=== PATIENT | male | born 1950 | race Caucasian/White ===

== ENCOUNTER 2018-11-15 09:39 | Emergency (ER) | payer MEDICARE ==
[~2018-11-15] VITALS: Ht 170.2 cm; Wt 77.1 kg
--- NOTE | 2018-11-15 10:20 | NUR ---
CAME IN FOR BIRGHT RED BLOOD IN STOOL THIS MORNING. TO ER BED 3, HOOKED TO MONITOR, PROVIDED W WARM BLANKET, AWAITING MD COR[place].
--- NOTE | 2018-11-15 10:20 | NUR ---
DR GUTIERREZ AT BEDSIDE
[2018-11-15] MEDS ORDERED: FAMOTIDINE/PF INJ 40 MG in IV D5W 50 ML IV ONE (10:30)
[2018-11-15] MEDS ORDERED: IV NS 0.9% 1,000 ML BAG IV ONE (10:30)
[2018-11-15] MEDS ORDERED: FAMOTIDINE/PF INJ 20 MG/2 ML VIAL IV ONE ×2 (10:31→11:00)
[2018-11-15 10:42] LABS: BASOPHILS % (AUTO) 0.8 % (0.0-2.0); EOSINOPHILS % (AUTO) 2.5 % (0.0-6.0); HEMATOCRIT 44 % (39-51); LYMPHOCYTES # (AUTO) 1.7 /CMM (0.8-4.8); LYMPHOCYTES % (AUTO) 29.6 % (20.0-44.0); MEAN CORPUSCULAR HGB CONC 34 g/dl (31.0-36.0); MEAN CORPUSCULAR VOLUME 93 fL (80-96); MONOCYTES # (AUTO) 0.5 /CMM (0.1-1.30); MONOCYTES % (AUTO) 8.2 % (2.0-12.0); NEUTROPHILS # (AUTO) 3.4 /CMM (1.8-8.9); NEUTROPHILS % (AUTO) 58.9 % (43.0-81.0); PLATELET COUNT (AUTO) 253 /CMM (150-450); RED BLOOD CELL COUNT(AUTO) 4.77 MIL/uL (4.5-6.0); WHITE BLOOD COUNT (AUTO) 5.9 K/uL (4.3-11.0)
--- NOTE | 2018-11-15 10:42 | NUR ---
PEPCID CHANGED TO IVP ORDERED BY DR GUTIERREZ
[2018-11-15 10:49] LABS: CALCIUM, SERUM 8.8 mg/dL (8.5-10.1); CREATININE 1.2 mg/dL (0.6-1.3); POTASSIUM 4.4 mmol/L (3.5-5.1)
[2018-11-15 10:55] LABS: ALBUMIN 3.7 g/dL (3.4-5.0); BILIRUBIN,DIRECT 0.1 mg/dL (0.0-0.2); BILIRUBIN,TOTAL 0.5 mg/dL (0.2-1.0); TOTAL PROTEIN, SERUM 6.8 g/dL (6.4-8.2)
--- NOTE | 2018-11-15 12:00 | NUR ---
DR GUTIERREZ AT BEDSIDE, RG=[id number]. RECEIVED VERBAL ORDER OF LABETALOL 20MG IVP BEFORE DISCHARGING THE PATIENT. CARRIED OUT
[2018-11-15] MEDS ORDERED: LABETALOL HCL IV 100MG VIAL ONE (12:01)
[2018-11-15] MEDS ORDERED: LABETALOL HCL IV 100MG VIAL IV ONE (12:30)
--- NOTE | 2018-11-15 12:37 | NUR ---
IV removed. Catheter intact and site benign. Pressure and 4x4 applied to site. No bleeding noted. Patient discharged, assisted to waiting room in stable condition. Pt will be picked up by cousin. Written and verbal after care instructions given. Patient verbalizes understanding of instruction.
[2018-11-15 12:39] VITALS: BP 152/77
== END 2018-11-15 12:40 | disposition home or self-care (01) ==
LOC: ER 09:39
DX: K92.1 Melena (principal); R19.7 Diarrhea, unspecified
CPT/HCPCS: 36415; 71045; 80048; 80076; 83690; 85025; 85730; 86850; 96361; 96374; 96375; 99284; J3490 ×2; J7030; J7060